=== PATIENT | male | born 1965 | race Caucasian/White ===

== ENCOUNTER 2017-02-07 15:46 | Emergency (ER) | payer OTHER ==
[~2017-02-07] VITALS: Ht 175.3 cm; Wt 72.8 kg
[2017-02-07 15:48] VITALS: BP 123/81
== END 2017-02-07 16:47 | disposition home or self-care (01) ==
LOC: ED 16:40
DX: S66.811A Strain of other specified muscles, fascia and tendons at wrist and hand level, right hand, initial encounter (principal); X50.0XXA Overexertion from strenuous movement or load, initial encounter; Y93.89 Activity, other specified; Y99.8 Other external cause status; Y92.89 Other specified places as the place of occurrence of the external cause; Z88.0 Allergy status to penicillin
CPT/HCPCS: 99283

== ENCOUNTER 2021-03-12 15:37 | Emergency (ER) | payer SELFPAY ==
[~2021-03-12] VITALS: Ht 177.8 cm; Wt 70.4 kg
[2021-03-12 15:40] VITALS: BP 121/82
== END 2021-03-12 15:59 | disposition home or self-care (01) ==
LOC: ED 15:54
DX: S61.412D Laceration without foreign body of left hand, subsequent encounter (principal); X58.XXXD Exposure to other specified factors, subsequent encounter
CPT/HCPCS: 99281

== ENCOUNTER 2021-03-15 14:33 | Emergency (ER) | payer OTHER ==
[~2021-03-15] VITALS: Ht 177.8 cm; Wt 70.0 kg
[2021-03-15 15:37] VITALS: BP 102/77
== END 2021-03-15 15:44 | disposition home or self-care (01) ==
LOC: ED 15:38
DX: S61.412D Laceration without foreign body of left hand, subsequent encounter (principal); F17.200 Nicotine dependence, unspecified, uncomplicated; X58.XXXD Exposure to other specified factors, subsequent encounter
CPT/HCPCS: 99281